=== PATIENT | female | born 1945 | race Caucasian/White ===

== ENCOUNTER → 2018-11-11 | Outpatient (CLI) | payer MEDICARE, BC ==
[~2018-11-11] MED LIST: [UNRECOGNIZED DRUG - OTHER] PO
--- NOTE | 2018-11-11 13:33 | CONS ---
Assessment/Plan Assessment/Plan Hospital Course (Demo Recall) 73-year-old female with left greater trochanteric bursitis with IT band tendinitis. At this point I am encouraging the patient to continue conservative treatment. She did have significant relief of symptoms with a short course of meloxicam. I am recommending meloxicam for 1 to 2 months with physical therapy. If the patient has not moved to [place] I would like to see her back in 3 months. I strongly encouraged the patient to establish follow-up with a joint surgeon in [place] especially given that her right hip is 18 years old. Although it shows no signs of wear on x-ray it is nearing its life expectancy. Consultation Date/Type/Reason Admit Date/Time Date of Consultation: Nov 11, 2018 Reason for Consultation Left hip pain Date/Time of Note DATE: 11/11/18 TIME: 13:27 Hx of Present Illness This is a 73-year-old female who presents with a history of left hip pain. Patient states the pain is in the lateral aspect of the hip. She is status post bilateral total hip arthroplasties by Dr. Chen. Right total hip done through posterior approach in 2000 with no issues. Left total hip done in 2014 through anterior approach with no issues until 2 months ago. She has been more active recently as she and her are preparing to move across country to [place]. Otherwise she denies any specific injury. The pain does radiate to the knee. It is described as sharp at times and as a dull ache. The pain is rated as a 5/10 with activity and 3/10 at rest. Walking tolerance is limited. No external support. The patient does admit to a limp. It is difficult to sleep on the affected side at night secondary to pain. There are no symptoms to suggest referred pain from the back with radicular symptoms. Treatment to date has included oral anti-inflammatories, activity modification. The patient states that treatment to date has not provided adequate relief of symptoms, prompting consultation. Duration: 2 months Injury: No specific injury Walking tolerance: Decrease Limp: Occasional Support: No Stairs: Uses normally Physical Therapy: Not recently Injections: No NSAID's: Meloxicam couple weeks ago. This helped while using. Prior surgery: Left total hip arthroplasty 2014 Back pain: No Knee pain: No Risk of AVN : No Patient denies fever, chills, shortness of breath, chest pain, nausea/vomiting, constipation, diarrhea, numbness, and tingling. Past Medical History Depression Home Meds Reported Medications [Esterace] No Conflict Check, 2.5 MG PO DAILY 06/10/14 Allergies: Coded Allergies: morphine (Verified Allergy, Unknown, 06/10/14) Past Surgical History Right total hip arthroplasty 2000 Dr. Chen Left total hip arthroplasty 2014 Dr. Chen Family History Significant Family History: no pertinent family hx Social History Alcohol Use: heavy (14 drinks a week) Smoking Status: Never smoker Drug Use: none Exam/Review of Systems Exam Vitals Weight: 122 pounds Height: 5 foot 5 inches Temperature: 90.6 Heart Rate: 64 Blood Pressure: 167/84 Respiratory Rate: 14 Exam General: Alert, oriented. Vital signs: Noted on the chart. Heart: Regular rate and rhythm. Lungs: No respiratory distress. No accessory muscle use. Musculoskeletal: Well developed thin female in no apparent distress. Gait demonstrates a mild Trendelenburg with antalgic components and no short leg component. Standing, the pelvis is level and supine there is no true leg length discrepancy. There is tenderness over trochanteric bursa and IT band. Positive Obers Test Range of motion: Flexion: 130 Extension: 0 Internal rotation: 30 External rotation: 60 Abduction: 60 Adduction: 10 Sitting there is no pelvic obliquity. Minimal to no pain at the extremes of motion of the affected hip. Skin was intact throughout both lower extremities. Sensation intact to light touch in a sural, saphenous, deep peroneal, superficial peroneal, medial and lateral plantar nerve distribution. Neurovascular exam showed 5/5 strength in the abductors, quads, EHL/tibialis anterior/gastroc. Normal and symmetrical pulses were palpated in both the dorsalis pedis and posterior tibial arteries. There is no sign of venous stasis. Imaging Imaging Xrays obtained in clinic today and personally reviewed by myself: AP pelvis and AP/Lat of the left hip demonstrate hip s/p OUSMANE with hip reduced. Components in good position and alignment. No signs of wear, osteolysis, loosening, component failure, or fracture. No acute complications. GABRIELLE MARKHAM MD Nov 11, 2018 13:33
--- NOTE | 2018-11-11 23:03 | RADRPT ---
PROCEDURE: XR Left Hip and pelvis. CLINICAL INDICATION: Left hip pain. Pelvic pain. Postop. TECHNIQUE: Three views. Frontal pelvis. Frontal and lateral left hip. COMPARISON: 08/01/2015. FINDINGS: There is no fracture or dislocation. The soft tissues are normal. There is a left hip total arthroplasty which appears satisfactory. There is a right hip total arthroplasty which appears satisfactory. There is no lytic or blastic lesion. The upper pelvis is not included on the image. IMPRESSION: 1. Satisfactory postoperative appearance of both hips. 2. Otherwise unremarkable study. RPTAT: QQ .Todd Nicolas MD, MD Date Time Electronically viewed and signed by .Todd Nicolas MD, on 11/11/2018 23:03 .R/
== END | disposition home or self-care (01) ==
LOC: HKI 09:54
PROVIDERS: ATTEND Orthopaedic Surgery Adult Reconstructive Orthopaedic Surgery
DX: M70.62 Trochanteric bursitis, left hip (principal); Z96.643 Presence of artificial hip joint, bilateral
CPT/HCPCS: 73502; G0463